=== PATIENT | female | born 1970 | race Caucasian/White ===

== ENCOUNTER 2020-08-08 11:40 | Emergency (ER) | payer SELFPAY ==
[~2020-08-08] VITALS: Ht 160 cm; Wt 80.0 kg
[~2020-08-08 11:40] MED LIST: IBUPROFEN800 MG PO; LISINOP/HCTZ1 TAB PO; ORAL CONTRACEPTIVE
[2020-08-08] MEDS ORDERED: PREDNISONE20 MG PO (14:18)
[2020-08-08] MEDS ORDERED: BENADRYL 50MG C50 MG PO (14:18)
[2020-08-08] MEDS ORDERED: PEPCID20 MG PO (14:18)
[2020-08-08] MEDS ORDERED: EPIPEN 2-P0.3 MG/0.3 IM (14:21)
[2020-08-08 14:54] VITALS: BP 117/62
[2020-08-09] MEDS ORDERED: NEXIUM40 M1 PO (07:36)
== END 2020-08-08 15:10 | disposition home or self-care (01) | DRG 916 ==
LOC: ED 11:40
DX: T78.2XXA Anaphylactic shock, unspecified, initial encounter (principal); L50.0 Allergic urticaria

== ENCOUNTER 2020-08-08 17:56 | Observation (INO) | payer OTHER ==
[~2020-08-08] VITALS: Ht 160 cm; Wt 82.3 kg
[~2020-08-08 17:56] MED LIST changes: +BENADRYL 50MG C50 MG PO; +EPIPEN 2-P0.3 MG/0.3 IM; +PEPCID20 MG PO; +PREDNISONE20 MG PO
--- NOTE | 2020-08-08 17:56 | NUR ---
PT AMB TO ROOM WITH OBVIOUS HIVES TO FACE
--- NOTE | 2020-08-08 18:42 | NUR ---
PT IN NO DISTRESS, IV FLUIDS INFUSING IN NO DITRESS. CONVERSIVE AND PLEASANT
[2020-08-08 18:50] LABS: HEMATOCRIT 43.1 % (37.0-47.0); HEMOGLOBIN 14.3 g/dl (12.0-16.0); IMMATURE GRANULOCYTES 0.2 % (0.0-5.0); MEAN CELL VOLUME 90.5 fL CALC (80.0-100.0); MEAN CORPUSCULAR HGB CONC 33.2 g/dL CAL (32.0-36.0); NEUT# 8.57 thou/uL (2.00-7.15); RED BLOOD COUNT 4.76 mill/uL (4.20-5.60); RED CELL DISTRI WIDTH 12.7 % (11.5-15.5)
[2020-08-08 19:03] LABS: ALBUMIN 4.1 g/dL (3.2-5.0); ALKALINE PHOSPHATASE 60 u/l (38-126); ANION GAP 19 (6-22 (CALC)); BILIRUBIN, TOTAL 0.3 mg/dL (0.0-1.4); BUN 15 mg/dL (7-17); BUN/CREATININE RATIO 20 (12-20 (CALC)); CHLORIDE 106 mmol/l (95-108); CREATININE 0.8 mg/dL (0.5-1.0); GFR > 60 ML/MIN (>=60 (CALC)); GFR FOR AFR.AMER. > 60 ML/MIN (>=60 (CALC)); POTASSIUM 4.1 mmol/l (3.5-5.1); SGOT/AST 25 u/l (14-36); SODIUM 137 mmol/l (137-146); TOTAL PROTEIN 7.5 g/dL (6.3-8.2)
[2020-08-08 19:16] LABS: CARBON DIOXIDE 16 mmol/l (22-30)
--- NOTE | 2020-08-08 19:45 | NUR ---
PATIENT AMBULATORY TO BATHROOM. FACE/HIVES APPEAR TO BE GONE. PATIENT DENIES ANY SOB, ITCHING. STATES SHE FEELS BETTER.
--- NOTE | 2020-08-08 20:03 | NUR ---
REPORT CALLED TO [facility]. PATIENT READIED FOR TRANSPORT TO FLOOR.
--- NOTE | 2020-08-08 20:05 | NUR ---
COVID SWAB OBTAINED. PATIENT AWARE OF PENDING ADMISSION AND TRANSPORT.
[2020-08-08 20:19] LABS: URINE BILIRUBIN - DIPSTICK NEGATIVE (NEGATIVE); URINE BLOOD DIPSTICK NEGATIVE (NEGATIVE); URINE COLOR YELLOW; URINE GLUCOSE - DIPSTICK 500 mg/dL (NEGATIVE); URINE KETONE TRACE mg/dL (NEGATIVE); URINE LEUK ESTERASE NEGATIVE (NEGATIVE); URINE NITRITE - DIPSTICK NEGATIVE (Negative); URINE PH 5.5 (4.5-8.0); URINE PROTEIN - DIPSTICK NEGATIVE (NEG-TRACE); URINE SPECIFIC GRAVITY 1.025; URINE UROBILINOGEN - DIPSTICK 0.2 E.U./dL (0.2)
--- NOTE | 2020-08-08 21:08 | NUR ---
50 yr old white female admitted icu6 per stretcher from er. ambulated self to bed. bed weight obtained. has obvious hives over her body. pt admits to food product reaction since last night. no resp diff. ekg monitor shows sinus rhythm. #22 saline lock lt hand. ivf began as ordered. history obtained per pt & er record. oriented to room. fall & air/contact precautions initiated.
[2020-08-08 21:15] VITALS: BP 126/78
[2020-08-08 21:45] VITALS: BP 116/75
--- NOTE | 2020-08-08 21:55 | NUR ---
PATIENT TRANSPORTED TO ROOM. DELAY IN TRANSPORT WE WERE WAITING FOR PATIENT'S TO ARRIVE TO TAKE HOME HER DAUGHTER FIRST BEFORE TRANSPORTING.
[2020-08-08 22:00] VITALS: BP 107/57
[2020-08-08 22:15] VITALS: BP 111/75
[2020-08-08 22:30] VITALS: BP 108/72
--- NOTE | 2020-08-09 00:01 | NUR ---
pt obviously has more hives over body. nad. benadryl 25mg iv given.
[2020-08-09 00:15] VITALS: BP 148/80
--- NOTE | 2020-08-09 00:30 | NUR ---
eyes closed. nad. panel monitor shows sinus rhythm hr 90.
[2020-08-09 02:00] VITALS: BP 96/71
--- NOTE | 2020-08-09 02:00 | NUR ---
resting quietly. resps even & unlabored. no apparent distress.
--- NOTE | 2020-08-09 04:00 | NUR ---
eyes closed. no distress. front desk monitor shows sinus rhythm hr 70.
--- NOTE | 2020-08-09 06:00 | NUR ---
voided per [facility]. benadryl 25mg iv given for obvious hives.
--- NOTE | 2020-08-09 06:45 | NUR ---
RECIEVED REPORT FROM DANIELLA HAILE. ASSUMED PT CARE.
[2020-08-09] MEDS ORDERED: NEXIUM40 M1 PO (07:36)
[2020-08-09 08:00] VITALS: BP 106/68
--- NOTE | 2020-08-09 08:00 | NUR ---
PT A&OX4, ABLE TO MAKE NEEDS KNOWN. RESPIRATIONS EVEN/UNLABOERED, LS CLEAR THROUGHOUT, SAO2@98%RA. ABDOMEN SOFT, NON-TENDER, BSX4 ACTIVE. 22GLH INFUSING NS@100ML/HR, NO S/S OF INFILTRATION NOTED AT THIS TIME. PT CONTINUES WITH HIVES ALL OVER BODY, DENIES SWELLING OR SOB AT THIS TIME. CALL LIGHT IN REACH. WILL MONITOR.
--- NOTE | 2020-08-09 08:43 | NUR ---
DR. SCOTT AT BEDSIDE FOR ASSESSMENT AND TO DISCUSS PLAN OF CARE. NEW ORDERS RECIEVED.
[2020-08-09 10:06] VITALS: BP 138/72
--- NOTE | 2020-08-09 10:07 | NUR ---
PT RESTING IN BED, HIVES CONTINUE TO FADE, PT DENIES SWELLING OF TONGUE OR SOB AT THIS TIME. CALL LIGHT IN REACH. WILL MONITOR
--- NOTE | 2020-08-09 11:00 | NUR ---
IV site discontinued, cath intact. No edema , no redness, voices no discomfort.
--- NOTE | 2020-08-09 11:20 | NUR ---
Discharge instructions given. Patient verbalizes understanding of same. Discharged in stable condition via Wheelchair to Home with family. All belongings sent with pt.
== END 2020-08-09 11:20 | disposition home or self-care (01) ==
LOC: ED 17:56 → ED-I 18:22 → ED 18:28 → ICU 18:29
PROVIDERS: Student in an Organized Health Care Education/Training Program; ADMIT Internal Medicine; ATTEND Internal Medicine
DX: T78.2XXA Anaphylactic shock, unspecified, initial encounter (principal); L50.0 Allergic urticaria; I10 Essential (primary) hypertension; E03.9 Hypothyroidism, unspecified; K21.9 Gastro-esophageal reflux disease without esophagitis; Z20.828 Contact with and (suspected) exposure to other viral communicable diseases
CPT/HCPCS: J0171

== ENCOUNTER 2023-09-08 12:01 | Emergency (ER) | payer MEDICAID ==
[~2023-09-08] VITALS: Ht 160 cm; Wt 87.5 kg
[~2023-09-08 12:01] MED LIST changes: +NEXIUM40 M1 PO
[2023-09-08] MEDS ORDERED: LEVOTHYROXIN50 MCG PO (13:11)
[2023-09-08] MEDS ORDERED: IBUPROFEN600 MG PO (13:39)
[2023-09-08] MEDS ORDERED: MEDDOSEPAK PO (13:39)
[2023-09-08 13:49] VITALS: BP 140/84
== END 2023-09-08 13:55 | disposition home or self-care (01) ==
LOC: ED 12:01
DX: M25.571 Pain in right ankle and joints of right foot (principal); I10 Essential (primary) hypertension; E03.9 Hypothyroidism, unspecified